=== PATIENT | male | born 1990 ===

== ENCOUNTER 2025-02-18 09:42 | Emergency (ER) | payer SELFPAY ==
[2025-02-18 09:49] VITALS: BP 124/83; PULSE 100; RESP 16; TEMP 36.6; O2SAT 98; BMI 26.6
--- NOTE | 2025-02-18 11:48 | EDNOTE_ITS ---
ED Medical Clearance RME/HPI General Chief complaint: Medical Clearance Stated complaint: LONGTERM CLEARANCE Time Seen by Provider: 02/18/25 11:34 Arrival date/time: 02/18/25 09:42 RME / HPI RME / HPI Narrative: 35-year-old male patient was brought in by EMS for evaluation regarding medical clearance. Apparently patient was incarcerated, obviously high with either meth or cocaine. Patient is refusing to talk. No other pertinent information can be extracted at this time. Patient is ambulatory, vital signs normal, no obvious physical trauma noted at this time Related Information Allergies Allergy/AdvReac Type Severity Reaction Status Date / Time No Known Allergies Allergy Verified 02/18/25 10:03 Review of Systems Review of Systems Narrative Review of Systems: Review of system reviewed and within normal limits except mentioned in HPI ED Exam Narrative Physical exam: VITAL SIGNS: Reviewed. GENERAL APPEARANCE: Alert and good eye contact, follows simple commands, no ac diaz distress, HEAD AND FACE: Non-traumatic. ENT: PERRL, pink conjunctivitis, eyelid no trauma, Mucous membrane moist. NECK: Supple, nontender, no nuchal rigidity. CHEST: No tenderness, no crepitus, no paradoxical movement, no retractions. LUNGS: Clear, well ventilated, symmetric, no rales, no wheezing, no ronchi, no stridor, good breath sounds bilaterally. HEART: Regular rate, regular rhythm, no murmur, no gallops. ABDOMEN: Soft, positive bowel sounds, nondistended, no guarding, nontender, no rebound, no masses, RECTAL: Deferred. GENITAL: Deferred. NEUROLOGICAL: Gross motor function intact sensory function intact, Appropriate for age. MUSCULOSKELETAL: low back nontender, full range of motion. EXTREMITIES: Nontender, full range of motion. SKIN: Color pink, dry, no rash, no lacerations, no abrasions, no contusions. LYMPHATICS: Deferred. Course Quality Measures none Orders Category Date Time Status DiphenhydrAMINE [Benadryl] Med 02/18/25 11:46 Discontinued 50 mg PO X1 ONE Vital Signs Vital signs: Vital Signs Temperature 97.9 F 02/18/25 09:49 Pulse Rate 100 02/18/25 09:49 Respiratory Rate 16 02/18/25 09:49 Blood Pressure 124/83 02/18/25 09:49 Pulse Oximetry (%) 98 02/18/25 09:49 Oxygen Delivery Method Room Air 02/18/25 09:49 Medical Clearance MDM Narrative MDM Narrative:: 35-year-old male patient was brought in by EMS for evaluation regarding medical clearance. Apparently patient was incarcerated, obviously high with either meth or cocaine. Patient is refusing to talk. No other pertinent information can be extracted at this time. Patient is ambulatory, vital signs normal, no obvious physical trauma noted at this time Patient was given Benadryl and was able to tolerate p.o. fluids in the emergency room. Patient's vital signs is unremarkable, blood pressure of 124/83, pulse of 100, respiratory rate of 16, temperature 97.9, oxygen sat 98% on room air. Patient is medically cleared for incarceration. Patient data External records reviewed:: None Clinical information provided by:: patient and law enforcement Social determinants that could affect healthcare access:: substance use Patient has the following chronic illnesses:: Plan How is presenting disease/condition affected by chronic disease/condition?: exacerbated by Evaluation data The following diagnostics were reviewed and interpreted by me:: other (specify) (None) Lab and/or radiology exams considered but not ordered:: None Interpretation Summary: None Medications / Prescriptions Medications or Prescriptions considered but not ordered:: None Medication administrations:: Medication Administration History Discontinued Medications Diphenhydramine HCl (Diphenhydramine 25 Mg Capsule) 50 mg PO X1 ONE Stop: 02/18/25 11:47 Benadryl Consultations Consultation(s) initiated? (list below): No Diagnosis Medical Clearance Differential Diagnosis: other (Drug abuse, dehydration, medical clearance for incarceration) Most likely diagnosis given after review of the tests above:: Medical clearance for incarceration Admission Indicated Admission indicated?: not indicated Admission Request Was there a request for admission?: No Disposition Plan Disposition Plan: Discharge Discharge Attestation Discharge Attestation: Patient condition: Stable Discharge Plan Plan Patient Disposition: HOME (Self Care) Discharge Disposition comment: Stable Problem List Clinical Impression: Medical clearance for incarceration Patient/Caregiver Discharge Instructions Discharge Activity: activity as tolerated Education Materials: Reducing Your Health Risks ... Additional Instructions: Thank you for the opportunity for serving you today. You are stable for discharged to penitentiary. Patient is medically cleared. You are advised to: Follow-up with your PCP in 1 to 2 days once you get out of penitentiary Return to ED for worsening of symptoms Increase oral fluids Print Language: French Stand Alone Forms: Janny Award Info., Patient Portal Info Letter PA/CONFIGURATION DEVELOPER Supervising Physician PA/CONFIGURATION DEVELOPER Supervising Physician: MD Mayte
== END 2025-02-18 12:09 ==
LOC: SERX 12:35
PROVIDERS: Emergency Provider Family Medicine
DX: Z02.89 Encounter for other administrative examinations (principal); Z65.3 Problems related to other legal circumstances
CPT/HCPCS: 99282; A9270